=== PATIENT | female | born 1965 | race Caucasian/White ===

== ENCOUNTER 2017-06-08 10:39 | Emergency (ER) | payer BC, OTHER ==
[~2017-06-08] VITALS: Ht 177.8 cm; Wt 129.3 kg
[~2017-06-08 10:39] MED LIST: HYDR25TA PO; PRED20TA PO
[2017-06-08 10:45] VITALS: BP 150/62
--- NOTE | 2017-06-08 11:26 | PHYS DOC ---
Past History Past Medical History: Arthritis, Diabetes, Hypertension Past Surgical History: Other Alcohol Use: Rarely Drug Use: None Adult General Chief Complaint Chief Complaint: EYE PROBLEMS HPI HPI Patient is a 52-year-old female who presents ambulatory to the ED complaining of visual disturbance in the right eye since last evening. She states she has to floaters and some flashes of light in her right eye. Last evening she noticed a floater and also some flashes of light in her upper outer visual field. This morning, the flashes of light are still there, she still has a floater and now she has a second floater. She has no eye pain. Her vision seems normal except for these disturbances. She's never had this before. She has no history of retinal problems or retinal detachment. She sees an jigger operator yearly at [facility] for an eye exam and to get glasses. She has seen an full service supervisor in the past for the diagnosis of astigmatism. She's never had eye surgery. She does have a history of diabetes and hypertension. Patient came to the ED because she was telling a friend about her symptoms and her friend thought her symptoms might be retinal detachment and urged her to come. Review of Systems Review of Systems Constitutional: Denies fever or chills [] Eyes: As in history of present illness HENT: Denies nasal congestion or sore throat [] Respiratory: Denies cough or shortness of breath [] Cardiovascular: Denies chest pain Neurologic: She does have a headache but it is not particularly bad Allergies Allergies Allergies Coded Allergies Type Severity Reaction Last Updated Verified No Known Drug Allergies 01/26/17 No Physical Exam Physical Exam Constitutional: Well developed, well nourished, no acute distress, non-toxic appearance. Alert, ambulatory, mentating normally. Visual acuities wearing glasses 20/15 each eye separately. HENT: Normocephalic, atraumatic, bilateral external ears normal, nose normal. [] Eyes: PERRLA, EOMI, conjunctiva normal, no discharge. Corneas are clear bilaterally. Right eye funduscopic exam: Redness and is visualized relatively well and appears to be normal. I don't see any evidence of retinal abnormality or retinal detachment. I do not see any blood or cloudiness in the vitreous. I do see one of the floaters described by the patient which is more or less central in the visual field. Left eye funduscopic exam normal. Neck: Normal range of motion, no stridor. [] Skin: Warm, dry, no erythema, no rash. [] Extremities: No tenderness, no cyanosis, no clubbing, ROM intact, no edema. [] Neurologic: Alert and oriented X 3, normal motor function, normal sensory function, no focal deficits noted. [] EKG EKG [] Radiology/Procedures Radiology/Procedures [] Course & Med Decision Making Course & Med Decision Making Pertinent Labs and Imaging studies reviewed. (See chart for details) 52-year-old female with hypertension and diabetes but without history of retinopathy presents with nonspecific visual disturbance for less than 24 hours. Visual acuities are 20/15 right eye and left eye separately. I believe her complaints are nonspecific and not necessarily indicative of a concern for retinal detachment. I discussed the case with Dr. Rodriguez, on-call for ophthalmology. He agreed with my assessment. He will be happy to see the patient in his office tomorrow. Patient is agreeable to that plan. See instructions for plan. [] Dragon Disclaimer Dragon Disclaimer This chart was dictated in whole or in part using Voice Recognition software in a busy, high-work load, and often noisy Emergency Department environment. It may contain unintended and wholly unrecognized errors or omissions. Departure Departure: Impression: Primary Impression: Subjective visual disturbance, right eye Additional Impression: Vitreous floaters of right eye Disposition: 01 HOME, SELF-CARE Condition: STABLE Referrals: PCP,NO (PCP) Additional Instructions: I discussed your case with the full service supervisor continuity writer, Dr. Rodriguez. He would be happy to see you in his office tomorrow. Call tomorrow morning and tell them you were in the ER today and he wants to see you on Friday in the office. [phone] [address] Problem Qualifiers LDYIA NORWOOD MD Jun 08, 2017 11:26
== END 2017-06-08 11:35 | disposition home or self-care (01) ==
LOC: ER 10:39
DX: H53.10 Unspecified subjective visual disturbances (principal); H43.391 Other vitreous opacities, right eye; E11.9 Type 2 diabetes mellitus without complications; I10 Essential (primary) hypertension; M19.90 Unspecified osteoarthritis, unspecified site
CPT/HCPCS: 99283

== ENCOUNTER 2017-07-05 08:00 | Emergency (ER) | payer BC, OTHER ==
[~2017-07-05] VITALS: Ht 177.8 cm; Wt 129.3 kg
[2017-07-05] MEDS ORDERED: ONDANSETRON PF 4 MG/2 ML VIAL. IV ONE (08:30)
[2017-07-05] MEDS ORDERED: IV NORMAL SALINE 500ML 500 ML IV ONE (08:30)
--- NOTE | 2017-07-05 08:35 | PHYS DOC ---
Past History Past Medical History: Arthritis, Diabetes, Hypertension Past Surgical History: Other Alcohol Use: Rarely Drug Use: None Adult General Chief Complaint Chief Complaint: BACK PAIN OR INJURY HPI HPI 52-year-old female presenting to the emergency department with low back pain that she reports is similar to her previous sciatica. It is a sharp shooting pain that is moderate to severe in intensity intermittent and alleviated with Percocet that she takes at home. She last took her oxycodone approximately 2 AM. She denies urinary incontinence fecal incontinence or worsening weakness in her legs. She denies fevers or chills. She denies polyuria or dysuria. She denies IV drug use. no hx of recent traumatic injury. Review of systems negative for chest pain shortness of breath nausea vomiting. All other review of systems is negative unless otherwise noted in history of present illness. ED course: 52-year-old female presenting with acute on chronic low back pain. Vital signs unremarkable. Pertinent physical examination findings show mild tenderness along the paraspinal musculature on the left more than the right. Nontender midline. No step-offs abrasions lacerations or ecchymosis or fluctuant masses. The patient was given IV saline and nausea with pain medications to help control her symptoms. On reexamination she was feeling better. Urinalysis suggestive of urinary tract infection. Oral Levaquin ordered for the patient. She was subsequently discharged home to follow-up with her PCP. The patient was then discharged home in stable condition to follow up with their primary care physician over the next 2-3 days. They were to return if their symptoms worsened or if they were concerned for any reason. [id number] discharge instructions and return precautions were given. Patient's questions were answered to their satisfaction. Patient is comfortable plan. Review of Systems Review of Systems SEE ABOVE. Current Medications Current Medications Current Medications Medications (Trade) Dose Ordered Sig/Yamil Start Time Stop Time Status Last Admin Dose Admin Hydromorphone HCl (Dilaudid) 0.5 mg PRN Q30MIN PRN 07/05/17 08:30 UNV Ondansetron HCl (Zofran) 4 mg 1X ONCE 07/05/17 08:30 07/05/17 08:31 UNV Sodium Chloride 500 ml @ 0 mls/hr 1X ONCE 07/05/17 08:30 07/05/17 08:31 UNV Allergies Allergies Allergies Coded Allergies Type Severity Reaction Last Updated Verified No Known Drug Allergies 01/26/17 No Physical Exam Physical Exam See above Constitutional: Well developed, well nourished, no acute distress, non-toxic appearance. [] HENT: Normocephalic, atraumatic, bilateral external ears normal, oropharynx moist, no oral exudates, nose normal. [] Eyes: PERRLA, EOMI, conjunctiva normal, no discharge. [] Neck: Normal range of motion, no tenderness, supple, no stridor. [] Cardiovascular:Heart rate regular rhythm, no murmur [] Lungs & Thorax: Bilateral breath sounds clear to auscultation [] Abdomen: Bowel sounds normal, soft, no tenderness, no masses, no pulsatile masses. [] Skin: Warm, dry, no erythema, no rash. [] Back:See above Extremities: No tenderness, no cyanosis, no clubbing, ROM intact, no edema. [] 2 + deep tendon reflexes of the knees. 5 out of 5 strength in legs. Neurologic: Alert and oriented X 3, normal motor function, normal sensory function, no focal deficits noted. [] Psychologic: Affect normal, judgement normal, mood normal. [] EKG EKG [] Radiology/Procedures Radiology/Procedures [] Course & Med Decision Making Course & Med Decision Making Pertinent Labs and Imaging studies reviewed. (See chart for details) [] Dragon Disclaimer Dragon Disclaimer This chart was dictated in whole or in part using Voice Recognition software in a busy, high-work load, and often noisy Emergency Department environment. It may contain unintended and wholly unrecognized errors or omissions. Departure Departure: Impression: Primary Impression: Back pain Additional Impression: UTI (urinary tract infection) Disposition: 01 HOME, SELF-CARE Condition: STABLE Referrals: PCP,SARAH (PCP) VEE BRO MD Patient Instructions: Back Exercises, Back Pain, Adult Additional Instructions: Thank you for allowing us to participate in your care today. Followup with your primary care physician in 3 days if your symptoms do not improve. Call your Primary Doctor tomorrow and inform them of your visit today. If you do not have a primary care provider you can ask for a list of our primary care providers. Return to the emergency department you have any new or concerning findings. This should be evaluated by the primary care physician and any necessary consulting services for continued management within a few days after discharge. Return to emergency room if you have any new or concerning symptoms including but not limited to fever, chills, nausea, vomiting, intractable pain, any new rashes, chest pain, shortness of air, uncontrolled bleeding, difficulty breathing, and/or vision loss. Scripts Levofloxacin (LEVAQUIN) 500 Mg Tablet 1 TAB PO DAILY, #5 TAB Prov: JESSICA SERRANO MD 07/05/17 Problem Qualifiers JESSICA SERRANO MD Jul 05, 2017 08:35
[2017-07-05] MEDS: HYDROmorphone PF 1 MG/ML DISP.SYRIN IV PRN ×2 (08:50→09:27)
[2017-07-05] MEDS ORDERED: METF10002 PO (08:56)
[2017-07-05] MEDS ORDERED: PREG75CA PO (08:57)
[2017-07-05] MEDS ORDERED: LORA10TA3 PO (09:07)
[2017-07-05] MEDS ORDERED: LOSA100T6 PO (09:07)
[2017-07-05] MEDS ORDERED: GLIM2TAB2 PO (09:08)
[2017-07-05 09:20] VITALS: BP 132/66
[2017-07-05] MEDS ORDERED: LEVO500T59 PO (09:25)
[2017-07-05 09:41] LABS: BILIRUBIN,URINE NEG (NEG); CLARITY,URINE CLEAR; COLOR,URINE YELLOW; GLUCOSE,URINE NEG (NEG)
[2017-07-05 09:42] LABS: NITRITE,URINE POS (NEG); UROBILINOGEN,URINE 0.2 mg/dL (0.2 mg/dL)
== END 2017-07-05 09:54 | disposition home or self-care (01) ==
LOC: ER 08:00
DX: G89.29 Other chronic pain (principal); N39.0 Urinary tract infection, site not specified; I10 Essential (primary) hypertension; E11.9 Type 2 diabetes mellitus without complications; M19.90 Unspecified osteoarthritis, unspecified site
CPT/HCPCS: 81001; 81025; 87086; 96374; 96375; 96376; 99284; J1170; J2405; J7040; 87186

== ENCOUNTER 2022-01-25 09:56 | Emergency (ER) | payer BC, OTHER ==
[~2022-01-25] VITALS: Ht 152.4 cm; Wt 100.0 kg
[~2022-01-25 09:56] MED LIST changes: +GLIM2TAB7 PO; +LEVO500T59 PO; +LORA10TA3 PO; +LOSA100T14 PO; +METF10007 PO; +PREG75CA PO
[2022-01-25 10:08] VITALS: BP 151/87
--- NOTE | 2022-01-25 10:31 | PHYS DOC ---
Past History Past Medical History: Diabetes, Hypertension, Other Additional Past Medical Histor: chronic pain; seasonal allergies Past Surgical History: Gastric Bypass, Other Additional Past Surgical Histo: spine stimulator; trigger finger; hernia/tummy tuck; parathyroid; back Alcohol Use: Occasionally Drug Use: None General Adult EDM: Chief Complaint: MECHANICAL FALL HPI: HPI: Patient is a 57-year-old female that presents today with head pain. Patient states around 9 AM today she fell on the ice landed on her buttocks area and then hit her head on the ground. Patient states she had no loss of consciousness, and she was able to ambulate without any difficulty. Patient is content discern with the increased pain on the right parietal area and neck pain. Patient does have a history of chronic back pain for which she has a spinal cord stimulator in place. Patient denies nausea or vomiting or shortness of air. Review of Systems: Review of Systems: Constitutional: Denies fever or chills Eyes: Denies change in visual acuity HENT: Head and neck pain denies nasal congestion or sore throat Respiratory: Denies cough or shortness of breath Cardiovascular: Denies chest pain or edema GI: Denies abdominal pain, nausea, vomiting, bloody stools or diarrhea : Denies dysuria Musculoskeletal: Denies back pain or joint pain Integument: Denies rash Neurologic: Denies headache, focal weakness or sensory changes Endocrine: Denies polyuria or polydipsia Lymphatic: Denies swollen glands Psychiatric: Denies depression or anxiety Allergies: Allergies: Allergies Coded Allergies Type Severity Reaction Last Updated Verified NSAIDS (Non-Steroidal Anti-Inflamma Allergy Unknown 01/25/22 Yes Sulfa (Sulfonamide Antibiotics) Allergy Unknown 07/05/17 Yes duloxetine Allergy Unknown 07/05/17 Yes levofloxacin Allergy Unknown 01/25/22 Yes Uncoded Allergies Type Severity Reaction Last Updated Verified SSRI Allergy Unknown 01/25/22 Physical Exam: PE: Constitutional: Well developed, well nourished, no acute distress, non-toxic appearance. [] HENT: Inspection and palpation of the head demonstrates tenderness with palpation to the right parietal area, no lacerations, abrasions, or ecchymosis noted, bilateral external ears normal, oropharynx moist, no oral exudates, nose normal. [] Eyes: PERRLA, EOMI, conjunctiva normal, no discharge. [] Neck: Normal range of motion, no tenderness, supple, no stridor, no midline tenderness Cardiovascular:Heart rate regular rhythm, no murmur [] Lungs & Thorax: Bilateral breath sounds clear to auscultation [] Abdomen: Bowel sounds normal, soft, no tenderness, no masses, no pulsatile m asses. [] Skin: Warm, dry, no erythema, no rash. [] Back: No tenderness, no CVA tenderness, no midline tenderness, spinal cord stimulator is noted Extremities: No tenderness, no cyanosis, no clubbing, ROM intact, no edema, steady gait Neurologic: Alert and oriented X 3, normal motor function, normal sensory function, no focal deficits noted. [] Psychologic: Affect normal, judgement normal, mood normal. [] Current Patient Data: Vital Signs: Vital Signs Date Time Temp Pulse Resp B/P (MAP) Pulse Ox O2 Delivery O2 Flow Rate FiO2 01/25/22 10:08 98.1 68 20 151/87 (108) 99 Room Air EKG: EKG: [] Radiology/Procedures: Radiology/Procedures: [REASON: fell and hit head no LOC PROCEDURE: CT HEAD AND CERVICAL SPINE WO PQRS Compliance Statement: One or more of the following individualized dose reduction techniques were utilized for this examination: 1. Automated exposure control 2. Adjustment of the mA and/or kV according to patient size 3. Use of iterative reconstruction technique CT HEAD AND CERVICAL SPINE WITHOUT CONTRAST History: Reason: fell and hit head no LOC. Headache. Comparison: None. Procedure: Axial images are obtained of the head from the skull base through the vertex without IV contrast. Noncontrast helical CT of the cervical spine was performed. Axial, sagittal, and coronal reconstructions were obtained. Findings: The ventricles and sulci are normal for the patient's age. No mass-effect, midline shift, hemorrhage or obvious acute infarction is identified. Basilar cisterns are patent. Bone windows demonstrate no significant calvarial abnormality. The visualized paranasal sinuses are clear. Mastoid air cells are well aerated. There is no evidence of acute fracture or acute malalignment of the cervical spine. There are no perched or jumped facet joints. The left C3/C4 facet joint is hypertrophic. There is straightening of normal cervical lordosis that may be p ositional or due to muscle spasm. There is disc space narrowing and degenerative endplate spurring of C5/C6 and C6/C7. There is some degree of central canal stenosis at C6/C7, perhaps moderate. There is mild retroodontoid pannus formation and calcification. There are probable bilateral thyroid nodules. The visualized lung apices are clear. IMPRESSION: 1. No acute intracranial abnormality. 2. No acute fracture of the cervical spine. 3. Probable bilateral thyroid nodules. Suggest outpatient thyroid ultrasound. Electronically signed by: Chace Diana MD (01/25/2022 10:48 AM) [id number]] Heart Score: C/O Chest Pain: No Risk Factors: Risk Factors: DM, Current or recent (<one month) smoker, HTN, HLP, family history of CAD, obesity. Risk Scores: Score 0 - 3: 2.5% MACE over next 6 weeks - Discharge Home Score 4 - 6: 20.3% MACE over next 6 weeks - Admit for Clinical Observation Score 7 - 10: 72.7% MACE over next 6 weeks - Early Invasive Strategies Course & Med Decision Making: Course & Med Decision Making Pertinent Labs and Imaging studies reviewed. (See chart for details) 1115 reassessment of patient shows her alert and orientated x2 the Glasc[place] 15, patient is complaining of a headache. Reviewed radiological results with patient did inform her there is no acute findings at this time, I did inform her that due to her headache and the nature of her fall that she may have a concussion, will send her home with [facility] DC instructions for concussion, patient states that she has an appointment with her neurologist next Friday, October 02, 2022, did inform her to return to the emergency department he says any change in the level of consciousness. Patient and who was at the bedside verbalized understanding this agreeable to plan of care. Jerry Disclaimer: Jerry Disclaimer: This electronic medical record was generated, in whole or in part, using a voice recognition dictation system. Departure Departure: Impression: Primary Impression: Fall Qualified Codes: W19.XXXA - Unspecified fall, initial encounter Additional Impressions: Concussion Qualified Codes: S06.0X0A - Concussion without loss of consciousness, initial encounter Head ache Qualified Codes: R51.9 - Headache, unspecified Disposition: HOME / SELF CARE / HOMELESS Condition: STABLE Referrals: NON,STAFF (PCP) Patient Instructions: Concussion and Brain Injury, General Headache Without Cause Additional Instructions: Hydrocodone 1 to 2 tablets every 6 hours as needed for severe pain, use with caution may cause drowsiness or constipation [id number] Tylenol as needed for mild to moderate pain Follow-up with your neurologist on January 30, 2022 as previously scheduled Return to the emergency department if you have a change in level of consciousness, you have inability to use 1 side your body, or you have slurred speech. Scripts Hydrocodone Bit/Acetaminophen (HYDROCODONE-APAP 5-325 ) 1 Each Tablet 1 TAB PO PRN Q6HRS PRN for PAIN, #20 TAB 0 Refills Prov: GAIL MERRITT BEAM DYER OPERATOR 01/25/22 GAIL MERRITT BEAM DYER OPERATOR Jan 25, 2022 10:31
--- NOTE | 2022-01-25 10:50 | RAD ---
PQRS Compliance Statement: One or more of the following individualized dose reduction techniques were utilized for this examinat ion: 1. Automated exposure control 2. Adjustment of the mA and/or kV according to patient size 3. Use of iterative reconstruction technique CT HEAD AND CERVICAL SPINE WITHOUT CONTRAST History: Reason: fell and hit head no LOC. Headache. Comparison: None. Procedure: Axial images are obtained of the head from the skull base through the vertex without IV co ntrast. Noncontrast helical CT of the cervical spine was performed. Axial, sagittal, and coronal rec onstructions were obtained. Findings: The ventricles and sulci are normal for the patient's age. No mass-effect, midline shift, hemorrhage or obvious acute infarction is identified. Basilar cistern s are patent. Bone windows demonstrate no significant calvarial abnormality. The visualized paranasal sinuses are clear. Mastoid air cells are well aerated. There is no evidence of acute fracture or acute malalignment of the cervical spine. There are no perched or jumped facet joints. The left C3/C4 facet joint is hypertrophic. There is str aightening of normal cervical lordosis that may be positional or due to muscle spasm. There is disc s pace narrowing and degenerative endplate spurring of C5/C6 and C6/C7. There is some degree of central canal stenosis at C6/C7, perhaps moderate. There is mild retroodontoid pannus formation and calcific ation. There are probable bilateral thyroid nodules. The visualized lung apices are clear. IMPRESSION: 1. No acute intracranial abnormality. 2. No acute fracture of the cervical spine. 3. Probable bilateral thyroid nodules. Suggest outpatient thyroid ultrasound. Electronically signed by: Chace Diana MD (01/25/2022 10:48 AM) [id number]
[2022-01-25] MEDS ORDERED: HYDR-2155 PO (11:42)
== END 2022-01-25 11:54 | disposition home or self-care (01) ==
LOC: ER 09:56
DX: S06.0X9A Concussion with loss of consciousness of unspecified duration, initial encounter (principal); M54.2 Cervicalgia; G89.29 Other chronic pain; E11.9 Type 2 diabetes mellitus without complications; I10 Essential (primary) hypertension; Z88.6 Allergy status to analgesic agent; Z88.2 Allergy status to sulfonamides; Z88.1 Allergy status to other antibiotic agents; W00.0XXA Fall on same level due to ice and snow, initial encounter; Y93.89 Activity, other specified; Y92.89 Other specified places as the place of occurrence of the external cause; Y99.8 Other external cause status
CPT/HCPCS: 70450; 72125; 99284